=== PATIENT | female | born 1930 | race Two or more races ===

== ENCOUNTER → 2016-10-12 | Outpatient (CLI) | payer MEDICARE, MEDICAID ==
[~2016-10-12] MED LIST: BUSP15 PO; CLOP75 PO; COMBIH IH; DIVA250T25 PO; DOMPERIDONE 10 MG PO; HYDR25TA PO; HYDROCODONE; LACT1CAP70 PO; LEVO150 PO; LOSA100T8 PO; METF500T7 PO; MULT1CAP32 PO; PEPCID; RABE20TA60 PO; SIMV-261 PO; TRAM50TA4 PO; [UNRECOGNIZED DRUG - CODE] PO; [UNRECOGNIZED DRUG - CODE] PO; [UNRECOGNIZED DRUG - OTHER]
== END | disposition home or self-care (01) ==
LOC: RADPV 09:28
PROVIDERS: ATTEND Internal Medicine Cardiovascular Disease
DX: I50.1 Left ventricular failure, unspecified (principal); I08.1 Rheumatic disorders of both mitral and tricuspid valves
CPT/HCPCS: 93306